=== PATIENT | female | born 1980 | race African-American/Black ===

== ENCOUNTER 2016-10-22 12:54 | Emergency (ER) | payer OTHER ==
[2016-10-22 13:12] VITALS: BP 132/81
[2016-10-22] MEDS ORDERED: Al Hydrox/Mg Hydrox/Simet LIQ* 30 ML UDC PO ONE (13:39)
[2016-10-22] MEDS ORDERED: Lidocaine 2% VISCOUS* 15 ML UDC PO ONE (13:39)
--- NOTE | 2016-10-22 14:16 | UC ---
Sherri Moura Thomas, scribed for Marilu Navarrete MD on 10/22/16 at 1324 . Cardiac HPI - HPI Summary HPI Summary: The pt is a 36 y/o F accompanied by and son and presenting to [facility] c/o intermittent CP characterized as burning for the past week. Pt states burning feeling in back of throat and upper neck. Previously, when she was she had heartburn, but her current pain is similar in chararacter but is worse than previous episode. When she had heartburn in the past, Tums alleviated her pain. Pt has not taken any Tums of Maalox, but has taken Pepto Bismol to no relief of pain. When she stands up from bending over, she gets a wave of pain and a taste in my mouth. + belching. Eating does not seem to change the pain level. Pt additionally c/o recent increase in belching, chills (separate from her pain), and tingling in her R arm. Pt denies SOB, diarrhea, bloody stools, and black tarry stools. She did not eat breakfast today second to mild nausea. The burning often wakes her up at night. Pt reports 2 previous stress tests performed previously, most recently in Feb, which were ok. Her PCP is Dr. Whiteside and her next scheduled appointment is next month. She is also prescribed a PRN inhaler. Patients medication reviewed this visit. . PMHx: DM (borderline), asthma, GERD. PSHx: tubal ligation. SHx: no smoking, no drinking, no illicit drugs. FHx: DM, HTN. S - History of Current Complaint Chief Complaint: UCChestPain Stated Complaint: HEART BURN CHEST PAIN Time Seen by Provider: 10/22/16 13:12 Hx Obtained From: Patient, Family/Director Of Technology - , son prseent Hx Last Menstrual Period: 10/20/16 Onset/Duration: Lasting Weeks - 1 week, Still Present Initial Severity: Mild Current Severity: None Chest Pain Location: Upper Sternal Character: Burning Aggravating: Position - when standing up from bending over, she gets a wave of pain Alleviating: Rest Associated Signs & Symptoms: Positive: Chest Pain, Tingling - to R arm. Negative: SOB, Nausea/Vomiting Related History: Similar Episode/Dx as - heartburn when she was - Allergy/Home Medications Allergies/Adverse Reactions: Allergies Allergy/AdvReac Type Severity Reaction Status Date / Time No Known Allergies Allergy Verified 10/22/16 13:12 PMH/Surg Hx/FS Hx/Imm Hx Previously Healthy: No Endocrine History: Diabetes - "borderline" Respiratory History: Asthma GI/ History: Gastroesophageal Reflux - when she was - Surgical History Surgical History: Yes Surgery Procedure, Year, and Place: TUBAL LIGATION, BB IN RT INDEX FINGER REMOVED A TEENAGER - Family History Known Family History: Positive: Hypertension, Diabetes Family History: Asthma - Social History Occupation: Unemployed - stay at home mom Lives: With Family Alcohol Use: None Substance Use Type: None Smoking Status (MU): Never Smoked Tobacco Review of Systems Constitutional: Chills - separate from chest pains Skin: Negative Eyes: Negative ENT: Negative Respiratory: Negative Cardiovascular: Chest Pain - began 1 week ago, aggravated by positional change, burning, belching Gastrointestinal: Other - POS: recent increase in belching; NEG: diarrhea, bloody stools, black tarry stools Genitourinary: Negative Motor: Negative Neurovascular: Negative Musculoskeletal: Negative Neurological: Negative Psychological: Negative All Other Systems Reviewed And Are Negative: Yes Physical Exam Triage Information Reviewed: Yes Appearance: Well-Appearing, No Pain Distress, Well-Nourished Vital Signs: Initial Vital Signs Temp 98.4 F 10/22/16 13:01 Pulse 65 10/22/16 13:01 Resp 16 10/22/16 13:01 BP 132/81 10/22/16 13:01 Pulse Ox 99 10/22/16 13:01 Vital Signs Reviewed: Yes Eye Exam: Normal Eyes: Positive: Conjunctiva Clear ENT Exam: Normal ENT: Positive: Normal ENT inspection, Hearing grossly normal, Pharynx normal Dental Exam: Normal Neck exam: Normal Neck: Positive: Supple, Nontender, No Lymphadenopathy Respiratory Exam: Normal Respiratory: Positive: Chest non-tender, Lungs clear, Normal breath sounds, No respiratory distress, No accessory muscle use Cardiovascular Exam: Normal Cardiovascular: Positive: RRR, No Murmur, Pulses Normal, Other: - not reproducible Abdominal Exam: Normal Abdomen Description: Positive: Nontender, No Organomegaly, Soft Bowel Sounds: Positive: Present Musculoskeletal Exam: Normal Neurological Exam: Normal Psychological Exam: Normal Skin Exam: Normal Diagnostics - EKG Cardiac Rate: NL - Sinus at 61 BPM. No STEMI. Inverted T-wave in III, unchanged from 12/31/16. Re-Evaluation - Re-Evaluation First Eval Re-Evaluation Time: 14:13 Change: Improved - Pt completely pain free folling GI cocktail eating a bagel Will d/c with Rx pepcid pcp f.u pt comfortable and in agreement with plan - Assessment/Plan Course Of Treatment: The pt is a 36 y/o F presenting to [facility] c/o intermittent CP characterized as burning for the past week. The pain is exacerbated by positional change. Pt additionally c/o recent increase in belching, chills ( separate from her pain), and tingling in her R arm. Pt has had neg stress test in 02/2016. She has a Hx of GERD. Will check EKG. GI cocktail. educated pt regarding GERD, food triggors, positional triggors. EKG reveals sinus at 61 BPM , no STEMI, inverted T-wave in III, unchanged from 03/22/16. - Clinical Impression Provider Diagnoses: GERD Discharge - Discharge Plan Condition: Stable Disposition: HOME Prescriptions: Famotidine TAB* [Pepcid 20 MG TAB*] 20 mg PO DAILY #30 tab Patient Education Materials: Gastroesophageal Reflux Disease (ED) Referrals: Fern Whiteside MD [Primary Care Provider] - Additional Instructions: - Stay well hydrated. Drink plenty of non-alcoholic, non-caffinated beverages - Avoid carbonated beverages, acidic food, tomato based food, fried foods - Eat small, frequent meals - Okay to take Tums or Maalox as needed for burning - Take pepcid - acid reducing medication as prescribed - Do not lay down for at least 1 hour after eating. Use 2-3 pillows - Call your doctor to schedule a follow-up appointment. Call your doctor, call 911 or go to the emergency department with any questions or concerns - increased pain, shortness of breath, lightheadedness, or any other questions or concerns The documentation as recorded by the Sherri duran Thomas accurately reflects the service I personally performed and the decisions made by , Marilu Navarrete MD.
== END 2016-10-22 14:20 | disposition home or self-care (01) ==
LOC: UCEAST 12:54
DX: K21.9 Gastro-esophageal reflux disease without esophagitis (principal); J45.909 Unspecified asthma, uncomplicated
CPT/HCPCS: 93005; 99212; A9270-GY; G0463

== ENCOUNTER 2017-05-05 18:38 | Emergency (ER) | payer OTHER ==
[2017-05-05 19:36] VITALS: BP 118/75
--- NOTE | 2017-05-05 20:39 | UC ---
FLU HPI - HPI Summary HPI Summary: Pt presents with fever, fatigue, and body aches for the last 2 days. Son was recently diagnosed with the flu. Pt has been taking tylenol for her symptoms. Denies cough, SOB, chest pain, abdominal pain, n/v/d/c. - History of Current Complaint Chief Complaint: UCRespiratory Stated Complaint: BODYACHES,FEVER Time Seen by Provider: 05/05/17 20:39 Hx Obtained From: Patient Hx Last Menstrual Period: 1 WEEK AGO Onset/Duration: Gradual Onset Severity Currently: Severe Severity Initially: Severe Pain Intensity: 9 Pain Scale Used: 0-10 Numeric - Allergy/Home Medications Allergies/Adverse Reactions: Allergies Allergy/AdvReac Type Severity Reaction Status Date / Time CATS Allergy Severe SNEEZING, Uncoded 05/05/17 19:36 CONGESTION DUST MITES Allergy Severe SNEEZING, Uncoded 05/05/17 19:36 CONGESTION Home Medications: Home Medications Acetaminophen [Mapap] 1,500 mg PO PRN 05/05/17 [History] Pheniramine/P-Eph/Acetaminophn [Theraflu Flu & Sore Throa] 1 ilya PO PRN [History] PMH/Surg Hx/FS Hx/Imm Hx Previously Healthy: Yes - Surgical History Surgical History: Yes Surgery Procedure, Year, and Place: TUBAL LIGATION, BB IN RT INDEX FINGER REMOVED A TEENAGER - Family History Known Family History: Positive: Hypertension, Diabetes Family History: Asthma - Social History Occupation: Employed Full-time Lives: With Family Alcohol Use: None Substance Use Type: None Smoking Status (MU): Never Smoked Tobacco Review of Systems Constitutional: Fever, Fatigue, Other - Body aches Skin: Negative Eyes: Negative ENT: Negative Respiratory: Negative Cardiovascular: Negative Gastrointestinal: Negative Musculoskeletal: Negative Neurological: Negative Psychological: Negative All Other Systems Reviewed And Are Negative: Yes Physical Exam Triage Information Reviewed: Yes Appearance: No Pain Distress, Well-Nourished, Ill-Appearing Vital Signs: Initial Vital Signs Temp 99.9 F 05/05/17 19:32 Pulse 85 05/05/17 19:32 Resp 20 05/05/17 19:32 BP 118/75 05/05/17 19:32 Pulse Ox 100 05/05/17 19:32 Vital Signs Reviewed: Yes Eyes: Positive: Conjunctiva Clear. Negative: Conjunctiva Inflamed, Discharge ENT: Positive: Hearing grossly normal, Pharynx normal, TMs normal, Uvula midline. Negative: Pharyngeal erythema, Nasal congestion, Nasal drainage, TM bulging, TM dull, TM red, Tonsillar swelling, Tonsillar exudate, Hoarse voice, Sinus tenderness Neck: Positive: Supple, Nontender, Other: - Anterior lymphadenopathy Respiratory: Positive: Lungs clear, Normal breath sounds, No respiratory distress, No accessory muscle use Cardiovascular: Positive: RRR, No Murmur, Pulses Normal Neurological: Positive: Alert Psychological: Positive: Age Appropriate Behavior Skin: Negative: rashes Flu Course/Dx - Course Course Of Treatment: Suspect influenza given her sick contacts and current presentation. Tamiflu - Differential Dx/Diagnosis Provider Diagnoses: Influenza Discharge - Discharge Plan Condition: Stable Disposition: HOME Prescriptions: Oseltamivir CAP* [Tamiflu CAP*] 75 mg PO BID #10 cap Patient Education Materials: Influenza (DC) Referrals: Fern Whiteside MD [Primary Care Provider] - Additional Instructions: If you develop a fever, shortness of breath, chest pain, new or worsening symptoms - please call your PCP or go to the ED.
== END 2017-05-05 20:45 | disposition home or self-care (01) ==
LOC: UCEAST 18:38
DX: J11.1 Influenza due to unidentified influenza virus with other respiratory manifestations (principal); Z20.828 Contact with and (suspected) exposure to other viral communicable diseases
CPT/HCPCS: 99212; G0463

== ENCOUNTER 2017-10-04 07:36 | Emergency (ER) | payer OTHER ==
[2017-10-04 07:47] VITALS: BP 148/94
--- NOTE | 2017-10-04 07:54 | UC ---
Dental HPI - HPI Summary HPI Summary: Pt is a 37 y/o F who presents to [facility] c/o dental pain. Pt reports that she had a plate put in place by a dentist to prevent shifting. After that she had difficulty talking and eating, though it could not be fixed. She saw another dentist and they removed it and cannot put in a new one, due to insurance coverage, per pt. Describes that she has been experiencing pain for the past 3- 4 months, gradually worsening. Pain is diffusely throughout the mouth stating, "my whole mouth hurts" with radiation to the bilateral eyes and ears and was at its worst last night. On triage, ranks pain 10/10 and has been taking Ibuprofen and Tylenol. Last saw a dentist 2 weeks ago where she was told she doesn't have any infection and has an appointment with a dentist on Thursday (5 days from today ). - History of Current Complaint Chief Complaint: UCDentalProblem Stated Complaint: DENTAL Time Seen by Provider: 10/04/17 07:48 Hx Obtained From: Patient Hx Last Menstrual Period: 3 wks ago Onset/Duration: Gradual Onset, Still Present Severity: Severe Pain Intensity: 10 Pain Scale Used: 0-10 Numeric Aggravating Factor(s): Nothing Alleviating Factor(s): Nothing - Allergies/Home Medications Allergies/Adverse Reactions: Allergies Allergy/AdvReac Type Severity Reaction Status Date / Time CATS Allergy Severe SNEEZING, Uncoded 10/04/17 07:47 CONGESTION DUST MITES Allergy Severe SNEEZING, Uncoded 10/04/17 07:47 CONGESTION PMH/Surg Hx/FS Hx/Imm Hx Endocrine History: Diabetes - Borderline Respiratory History: Asthma - Surgical History Surgical History: Yes Surgery Procedure, Year, and Place: TUBAL LIGATION, BB IN RT INDEX FINGER REMOVED A TEENAGER - Family History Known Family History: Positive: Hypertension, Diabetes Family History: Asthma - Social History Alcohol Use: None Substance Use Type: None Smoking Status (MU): Never Smoked Tobacco Review of Systems Constitutional: Negative Skin: Negative Eyes: Negative ENT: Dental Pain Respiratory: Negative Cardiovascular: Negative Gastrointestinal: Negative Genitourinary: Negative Motor: Negative Neurovascular: Negative Musculoskeletal: Negative Neurological: Negative Psychological: Negative All Other Systems Reviewed And Are Negative: Yes Physical Exam - Summary Physical Exam Summary: General: well-appearing Skin: warm, color reflects adequate perfusion, dry Head: normal Eyes: EOMI, [place] ENT: teeth are tender to percussion both upper and lower, upper is worse than lower and there are some dental caries Neck: supple, nontender Respiratory: CTA, breath sounds present Cardiovascular: RRR Abdomen: soft, nontender Bowel: present Musculoskeletal: normal, strength/ROM intact Neurological: sensory/motor intact, A&O x3 Psychological: affect/mood appropriate Triage Information Reviewed: Yes Vital Signs: Initial Vital Signs Temp 98.9 F 10/04/17 07:43 Pulse 66 10/04/17 07:43 Resp 18 10/04/17 07:43 BP 148/94 10/04/17 07:43 Pulse Ox 99 10/04/17 07:43 Vital Signs Reviewed: Yes Dental Complaint Course/Dx - Course Course Of Treatment: Medications reviewed. Allergies noted. BP noted and advised to follow up with PCP. F/U DENTIST; RECHECK SOONER IF NEEDED. - Differential Dx/Diagnosis Provider Diagnoses: DENTAL PAIN Discharge - Sign-Out/Discharge Documenting (check all that apply): Patient Departure - Discharge - Discharge Plan Condition: Stable Disposition: HOME Prescriptions: Amoxicillin PO (*) [Amoxicillin 875 MG (*)] 875 mg PO BID #20 tab HYDROcodone/ACETAMIN 5-325 MG* [[place] 5-325 TAB*] 1 tab PO Q4H PRN #30 tab MDD 6 PRN Reason: Pain Ibuprofen TAB* [Motrin TAB* 800 MG] 800 mg PO TID PRN #30 tab PRN Reason: Pain Patient Education Materials: Toothache (ED) Referrals: Fern Whiteside MD [Primary Care Provider] - Additional Instructions: FOLLOW UP WITH YOUR DENTIST. GET RECHECKED FOR ANY WORSENING OF YOUR CONDITION OR QUESTIONS OR CONCERNS. - Billing Disposition and Condition Condition: STABLE Disposition: Home
[2017-10-04] MEDS ORDERED: HYDROcodone/ACETAMIN 5-325 MG* 1 TAB PO ONE (07:58)
== END 2017-10-04 08:10 | disposition home or self-care (01) ==
LOC: UCEAST 07:36
DX: K08.89 Other specified disorders of teeth and supporting structures (principal)
CPT/HCPCS: 99212; G0463

== ENCOUNTER 2017-12-21 11:17 | Emergency (ER) | payer OTHER ==
[2017-12-21 11:51] VITALS: BP 155/99
--- NOTE | 2017-12-21 13:48 | RAD ---
HISTORY: cough x 3 months, fever COMPARISONS: June 29, 2015 VIEWS: 4: Frontal dual-energy and lateral views of the chest. FINDINGS: CARDIOMEDIASTINAL SILHOUETTE: The cardiomediastinal silhouette is normal. IMELDA: The imelda are normal. PLEURA: The costophrenic angles are sharp. No pleural abnormalities are noted. LUNG PARENCHYMA: The lungs are clear. ABDOMEN: The upper abdomen is clear. There is no subphrenic gas. BONES AND SOFT TISSUES: No bone or soft tissue abnormalities are noted. OTHER: None. IMPRESSION: NO ACTIVE CARDIOPULMONARY DISEASE.
--- NOTE | 2017-12-22 08:05 | ED ---
Progress - Progress Note Progress Note: CXR NAD 12/22/17, NO CHANGE IN CARE Discharge - Sign-Out/Discharge Documenting (check all that apply): Patient Departure All imaging exams completed and their final reports reviewed: Yes - Discharge Plan Condition: Good Disposition: HOME Referrals: Fern Whiteside MD [Primary Care Provider] - Additional Instructions: - Due to shortness of breath, lightheadedness, dizziness patient is sent to ER for evaluation - Billing Disposition and Condition Condition: GOOD Disposition: Home
--- NOTE | 2017-12-24 21:31 | UC ---
Shortness of Breath HPI - HPI Summary HPI Summary: 37 y/o female with c/o shortness of breath x several months, worse over past few weeks with associaetd lightheadedness, dizziness, substernal chest pain. h /o asthma. nebulizers do not help with breathing, taking albuterol inhaler without benefit. - History of Current Complaint Chief Complaint: UCRespiratory Stated Complaint: COUGH Time Seen by Provider: 12/21/17 13:06 Hx Obtained From: Patient Hx Last Menstrual Period: 12/11/17 ?: No Onset/Duration: Gradual Onset, Lasting Weeks, Worse Since - x 1 week Current Severity: Moderate Dyspnea At: Exertion Aggrevating Factors: Movement, Deep Breaths Associated Signs & Symptoms: Positive: Cough (Nonproductive) - Allergy/Home Medications Allergies/Adverse Reactions: Allergies Allergy/AdvReac Type Severity Reaction Status Date / Time CATS Allergy Severe SNEEZING, Uncoded 12/21/17 14:32 CONGESTION DUST MITES Allergy Severe SNEEZING, Uncoded 12/21/17 14:32 CONGESTION Home Medications: Home Medications Ibuprofen TAB* [Motrin TAB* 800 MG] 400 mg PO TID PRN 12/21/17 [History] PMH/Surg Hx/FS Hx/Imm Hx Previously Healthy: No - asthma - Surgical History Surgical History: Yes Surgery Procedure, Year, and Place: TUBAL LIGATION, BB IN RT INDEX FINGER REMOVED A TEENAGER - Family History Known Family History: Positive: Hypertension, Diabetes Family History: Asthma - Social History Alcohol Use: None Substance Use Type: None Smoking Status (MU): Never Smoked Tobacco Review of Systems Respiratory: Shortness Of Breath, Cough Cardiovascular: Chest Pain Is Patient Immunocompromised?: No All Other Systems Reviewed And Are Negative: Yes Physical Exam Triage Information Reviewed: Yes Appearance: Well-Appearing, No Pain Distress, Well-Nourished Vital Signs: Initial Vital Signs Temp 98.1 F 12/21/17 11:46 Pulse 79 12/21/17 11:46 Resp 18 12/21/17 11:46 BP 155/99 12/21/17 11:46 Pulse Ox 97 12/21/17 11:46 Vital Signs Reviewed: Yes ENT: Positive: Pharynx normal, TMs normal, Uvula midline. Negative: Dental tenderness, Sinus tenderness Neck: Positive: Supple, Nontender, No Lymphadenopathy Respiratory: Positive: Chest non-tender, Lungs clear, Normal breath sounds, No respiratory distress, No accessory muscle use, Wheezing - minimal at lower lobes b/l, difficult to hear due to body habitus. Negative: Respiratory distress, Crackles, Rhonchi, Stridor Cardiovascular: Positive: RRR, No Murmur, Pulses Normal Abdomen Description: Negative: CVA Tenderness (R), CVA Tenderness (L) Psychological Exam: Normal Skin Exam: Normal Shortness of Breath Dx - Course Course Of Treatment: EKg- abnormal T waves, non-specific. Due to aptient symptoms, sent to ER for further evaluation - Differential Dx/Diagnosis Differential Diagnosis/HQI/PQRI: CHF, AR, Pulmonary Embolism Provider Diagnoses: Patient sent to ED due to hypertension, chest pain Discharge - Sign-Out/Discharge Documenting (check all that apply): Patient Departure All imaging exams completed and their final reports reviewed: Yes - Discharge Plan Condition: Good Disposition: HOME Referrals: Fern Whiteside MD [Primary Care Provider] - Additional Instructions: - Due to shortness of breath, lightheadedness, dizziness patient is sent to ER for evaluation - Billing Disposition and Condition Condition: GOOD Disposition: Home
== END 2017-12-21 13:55 | disposition home or self-care (01) ==
LOC: UCEAST 11:17
DX: R07.89 Other chest pain (principal); I10 Essential (primary) hypertension; R05 Cough; R06.02 Shortness of breath
CPT/HCPCS: 71046; 93005; 99212; G0463

== ENCOUNTER 2017-12-21 14:26 | Emergency (ER) | payer OTHER ==
--- NOTE | 2017-12-21 17:43 | ED ---
HPI Chest Pain - HPI Summary HPI Summary: A 37 y/o F presents to ED with c/o a productive cough with green phlegm for 3 months, which she thought was her asthma, but her nebulizer provides no relief. Associated sx: Dizziness, CP secondary to cough, fever 101 F yesterday which has resolved. Pt has not taken any OTC cough medicine. She had similar sx three years ago which was when she was diagnosed with asthma. Pt was seen at [facility] this afternoon and they referred her to ED. - History of Current Complaint Chief Complaint: EDChestPainROMI Time Seen by Provider: 12/21/17 17:42 Hx Obtained From: Patient Hx Last Menstrual Period: 12/11/17 Onset/Duration: Started Weeks Ago, Still Present Timing: Intermittent Initial Severity: Moderate Current Severity: Severe Pain Intensity: 8 Pain Scale Used: 0-10 Numeric Associated Signs and Symptoms: Positive: Chest Pain - due to cough, Dizziness, Fever, Productive Cough - Allergy/Home Medications Allergies/Adverse Reactions: Allergies Allergy/AdvReac Type Severity Reaction Status Date / Time CATS Allergy Severe SNEEZING, Uncoded 12/21/17 14:32 CONGESTION DUST MITES Allergy Severe SNEEZING, Uncoded 12/21/17 14:32 CONGESTION PMH/Surg Hx/FS Hx/Imm Hx Previously Healthy: No Endocrine/Hematology History: Reports: Hx Diabetes - states "borderline" Denies: Hx Thyroid Disease Cardiovascular History: Reports: Other Cardiovascular Problems/Disorders - bradycardia postpardem Denies: Hx Hypertension, Hx Pacemaker/ICD Respiratory History: Reports: Hx Asthma Denies: Hx Chronic Obstructive Pulmonary Disease (COPD) GI History: Denies: Hx Ulcer Sensory History: Denies: Hx Hearing Aid Psychiatric History: Denies: Hx Panic Disorder - Surgical History Surgery Procedure, Year, and Place: TUBAL LIGATION, BB IN RT INDEX FINGER REMOVED A TEENAGER Infectious Disease History: No Infectious Disease History: Denies: Hx Hepatitis, Hx Human Immunodeficiency Virus (HIV), History Other Infectious Disease, Traveled Outside the [place] in Last 30 Days - Family History Known Family History: Positive: Hypertension, Diabetes Family History: Asthma - Social History Occupation: Employed Full-time - HOMEMAKER Lives: With Family Alcohol Use: None Hx Substance Use: No Substance Use Type: Reports: None Hx Tobacco Use: No Smoking Status (MU): Never Smoked Tobacco Review of Systems Positive: Fever Positive: Chest Pain - secondary to cough Positive: Cough Neurological: Other - pos: dizziness All Other Systems Reviewed And Are Negative: Yes Physical Exam - Summary Physical Exam Summary: VITAL SIGNS: Reviewed. GENERAL: Patient is a well-developed and nourished FEMALE who is lying comfortable in the stretcher. Patient is not in any acute respiratory distress. HEAD AND FACE: No signs of trauma. No ecchymosis, hematomas or skull depressions. No sinus tenderness. EYES: PERRLA, EOMI x 2, No injected conjunctiva, no nystagmus. EARS: Hearing grossly intact. Ear canals and tympanic membranes are within normal limits. MOUTH: Oropharynx within normal limits. NECK: Supple, trachea is midline, no adenopathy, no JVD, no carotid bruit, no c- spine tenderness, neck with full ROM. CHEST: Symmetric, no tenderness at palpation LUNGS: Clear to auscultation bilaterally. No wheezing or crackles. CVS: Regular rate and rhythm, S1 and S2 present, no murmurs or gallops appreciated. ABDOMEN: Soft, non-tender. No signs of distention. No rebound, no guarding, and no masses palpated. Bowel sounds are normal. EXTREMITIES: FROM in all major joints, no edema, no cyanosis or clubbing. NEURO: Alert and oriented x 3. No acute neurological deficits. Speech is normal and follows commands. SKIN: Dry and warm Triage Information Reviewed: Yes Vital Signs On Initial Exam: Initial Vitals Temp Pulse Resp BP Pulse Ox 97.2 F 86 20 147/91 95 12/21/17 14:29 12/21/17 14:29 12/21/17 14:29 12/21/17 14:29 12/21/17 14:29 Vital Signs Reviewed: Yes Diagnostics - Vital Signs Vital Signs Temp Pulse Resp BP Pulse Ox 12/21/17 17:39 98.7 F 97 18 149/88 99 12/21/17 16:18 98.0 F 80 16 144/88 99 12/21/17 14:29 97.2 F 86 20 147/91 95 - Laboratory Result Diagrams: 12/21/17 18:14 12/21/17 18:14 Lab Statement: Any lab studies that have been ordered have been reviewed, and results considered in the medical decision making process. - EKG 1436 Cardiac Rate: NL - 76bpm EKG Rhythm: Sinus Rhythm ST Segment: Normal - no ST elevation EKG Interpretation: inverted T-waves in III EKG Comparison: No Significant Change - from 10/22/16. Chest Pain Course/Dx - Course Assessment/Plan: A 37 y/o F presents to ED with c/o a productive cough with green phlegm for 3 months, which she thought was her asthma, but her nebulizer provides no relief. Associated sx: Dizziness, CP secondary to cough, fever 101 F yesterday which has resolved. Pt has not taken any OTC cough medicine. She had similar sx three years ago which was when she was diagnosed with asthma. Pt was seen at [facility] this afternoon and they referred her to ED. Blood test results without any significant abnormality except for seasonal 10.9, and d-dimer is 461. Therefore this point I decided to put in a CTA of the chest to rule out PE. The patient will be signed out to Dr. Amor to follow-up the CT results and further assessment and disposition. - Chest Pain Differential Diagnosis/HQI/PQRI: Acute MT, ACS, Angina, CHF, Chest Wall, GI Disease, Lower Respiratory Infection, Pulmonary Edema - Diagnoses Provider Diagnoses: Dyspnea Discharge - Sign-Out/Discharge Documenting (check all that apply): Sign-Out Patient Signing out patient TO: Adithya Amor - pending work-up, dispo - Discharge Plan Condition: Stable Disposition: HOME Patient Education Materials: Dyspnea (ED) Referrals: Fern Whiteside MD [Primary Care Provider] - 2 Days Additional Instructions: RETURN TO THE EMERGENCY DEPARTMENT FOR CHANGING OR WORSENING SYMPTOMS. FOLLOW UP WITH PRIMARY CARE PHYSICIAN IN 1-2 DAYS. - Attestation Statements Document Initiated by Julioibe: Yes Documenting Scribe: Janki Mccray Provider For Whom Crissy is Documenting (Include Credential): Dr. Dominick Healy MD Scribe Attestation: Janki Moura scribed for Dr. Dominick Healy MD on 12/22/17 at 1826. Scribe Documentation Reviewed: Yes Provider Attestation: The documentation as recorded by the Janki duran accurately reflects the service I personally performed and the decisions made by me, Dr. Dominick Healy MD
[2017-12-21] MEDS ORDERED: NS 0.9% 1000 ML* 1,000 ML IV ONE (18:05)
[2017-12-21] MEDS ORDERED: guaiFENesin/CODIEN 100MG-10MG* 5 ML UDC PO ONE (18:07)
[2017-12-21 18:24] LABS: ABS Basophils 0.1 10^3/ul (0-0.2); ABS Eosinophils 0.2 10^3/ul (0-0.6); ABS Lymphocytes 3.4 10^3/ul (1.0-4.8); ABS Monocytes 0.5 10^3/ul (0-0.8); ABS Neutrophils 6.7 10^3/ul (1.5-7.7); ABS Nucleated RBC 0 10^3/ul; Eosinophil % 1.6 % (0-6); Hematocrit 41 % (35-47); Hemoglobin 13.3 g/dl (12.0-16.0); Mean Corpuscular HGB Conc 33 g/dl (31-36); Mean Corpuscular Hemoglobin 29 pg (27-31); Mean Corpuscular Volume 88 fL (80-97); Mean Platelet Volume 7.2 um3 (7.4-10.4); Nucleated Red Blood Cells % 0.1; Platelet Count 376 10^3/ul (150-450); Red Blood Count 4.58 10^6/ul (4.00-5.40); Red Cell Distribution Width 13 % (10.5-15); White Blood Count 10.9 10^3/ul (3.5-10.8)
[2017-12-21 19:03] LABS: EGFR Non-African American 59.3 (>60)
[2017-12-21] MEDS ORDERED: Iohexol 350* (CONTRAST) 500 ML MDV IV ONE (19:20)
--- NOTE | 2017-12-21 19:30 | ED ---
Progress - Progress Note Progress Note: Patient was received as a sign out from Dr. Healy to Dr. Amor at 1900 for shift change pending CTA chest results. CTA Chest/Thorax: no pulmonary emboli. No additional findings to correlate with patient's symptomatology. Course/Dx - Course Course Of Treatment: Patient was received as a sign out from Dr. Healy to Dr. Amor at 1900 for shift change pending CTA chest results. CTA Chest/Thorax: no pulmonary emboli. No additional findings to correlate with patient's symptomatology. Patient was discharged to home and instructed to follow up with PCP in 1-2 days. Dx of dyspnea. - Diagnoses Provider Diagnoses: Dyspnea Discharge - Sign-Out/Discharge Documenting (check all that apply): Patient Departure - discharge - Discharge Plan Condition: Stable Disposition: HOME Patient Education Materials: Dyspnea (ED) Referrals: Fern Whiteside MD [Primary Care Provider] - 2 Days Additional Instructions: RETURN TO THE EMERGENCY DEPARTMENT FOR CHANGING OR WORSENING SYMPTOMS. FOLLOW UP WITH PRIMARY CARE PHYSICIAN IN 1-2 DAYS. - Attestation Statements Document Initiated by Scribe: Yes Documenting Scribe: Sixto Weston Provider For Whom Crissy is Documenting (Include Credential): Adithya Amro MD Scribe Attestation: Sixto Moura , scribed for Adithya Amor MD on 12/21/17 at 2053.
--- NOTE | 2017-12-21 20:43 | RAD ---
EXAM: CT Angiography Chest With Intravenous Contrast CLINICAL HISTORY: 37 years old, female; Signs and symptoms; Shortness of breath and other: Chest pain; Additional info: SOB and chest pain TECHNIQUE: Axial computed tomographic angiography images of the chest with intravenous contrast using pulmonary embolism protocol. All CT scans at this facility use at least one of these dose optimization techniques: automated exposure control; mA and/or kV adjustment per patient size (includes targeted exams where dose is matched to clinical indication); or iterative reconstruction. MIP reconstructed images were created and reviewed. Coronal and sagittal reformatted images were created and reviewed. CONTRAST: 86 mL of Omnipaque administered intravenously. COMPARISON: DX CXR CHEST PA LAT 2 VWS 12/21/2017 1:25 PM FINDINGS: Pulmonary arteries: Pulmonary arteries are well opacified to the subsegmental branches. Normal caliber main pulmonary artery. No filling defects throughout the pulmonary artery tree. Aorta: Normal caliber aorta with no evidence of dissection or rupture. Lungs: No pulmonary nodules, masses, or consolidations. No bronchiectasis, peribronchial thickening, or luminal defects. Pleural space: Normal. No significant effusion. No pneumothorax. Heart: Normal. No cardiomegaly. No significant pericardial effusion. No evidence of RV dysfunction. Thyroid: No thyroid nodules. Bones/joints: No fractures. No suspicious bone lesions. No dislocation. Soft tissues: Normal. Lymph nodes: Normal. No enlarged lymph nodes. IMPRESSION: No pulmonary emboli. No additional findings to correlate with patient's symptomatology.
[2017-12-21 20:52] VITALS: BP 146/76
[2017-12-21 21:07] LABS: Urine Appearance Cloudy; Urine Blood Negative (Negative); Urine Color Yellow; Urine Ketones Negative (Negative); Urine Protein Negative (Negative); Urine Red Blood Cell 3+(>10/hpf) (Absent); Urine Urobilinogen Negative (Negative); Urine White Blood Cell Trace(0-5/hpf) (Absent)
== END 2017-12-21 21:13 | disposition home or self-care (01) ==
LOC: ED 14:26
DX: R06.00 Dyspnea, unspecified (principal)
CPT/HCPCS: 36415; 71275; 80053; 81003; 81015; 82550; 82553; 83605; 83735; 83880; 84443; 84484; 85025; 85379; 85730; 87086; 93005; 99283; A9270-GY; Q9967

== ENCOUNTER 2018-06-05 14:34 | Emergency (ER) | payer OTHER ==
[2018-06-05 15:06] VITALS: BP 139/85
[2018-06-05 15:58] LABS: Influenza A Molecular NEGATIVE (Negative); Influenza B Molecular NEGATIVE (Negative)
--- NOTE | 2018-06-05 16:00 | UC ---
FLU HPI - HPI Summary HPI Summary: fevers chills body aches sore throat nasal congestion and cough---no flu vaccine --no one else at home is ill - History of Current Complaint Chief Complaint: UCRespiratory Stated Complaint: FLU LIKE-SYM Time Seen by Provider: 06/05/18 15:53 Hx Obtained From: Patient Hx Last Menstrual Period: 3 wks ago ?: No Onset/Duration: Sudden Onset, Lasting Days - 1, Still Present Pain Intensity: 10 Pain Scale Used: 0-10 Numeric Associated Signs & Symptoms: Positive: Fever, Myalgia, Cough, Sore Throat, Nasal Congestion, Headache - Allergy/Home Medications Allergies/Adverse Reactions: Allergies Allergy/AdvReac Type Severity Reaction Status Date / Time CATS Allergy Severe SNEEZING, Uncoded 06/05/18 15:07 CONGESTION DUST MITES Allergy Severe SNEEZING, Uncoded 06/05/18 15:07 CONGESTION PMH/Surg Hx/FS Hx/Imm Hx Previously Healthy: No Endocrine History: Diabetes - borderline Respiratory History: Asthma - Surgical History Surgical History: Yes Surgery Procedure, Year, and Place: TUBAL LIGATION, BB IN RT INDEX FINGER REMOVED A TEENAGER - Family History Known Family History: Positive: Hypertension, Diabetes Family History: Asthma - Social History Occupation: Works From/At Home Lives: With Family Alcohol Use: None Substance Use Type: None Smoking Status (MU): Never Smoked Tobacco Review of Systems All Other Systems Reviewed And Are Negative: Yes Constitutional: Positive: Fever, Chills, Fatigue Skin: Positive: Negative Eyes: Positive: Negative ENT: Positive: Sore Throat, Nasal Discharge Respiratory: Positive: Cough Cardiovascular: Positive: Negative Gastrointestinal: Positive: Negative Genitourinary: Positive: Negative Motor: Positive: Negative Neurovascular: Positive: Negative Musculoskeletal: Positive: Arthralgia, Myalgia Neurological: Positive: Headache Psychological: Positive: Negative Is Patient Immunocompromised?: Yes Physical Exam Triage Information Reviewed: Yes Appearance: Ill-Appearing, Pain Distress, Obese Vital Signs: Initial Vital Signs Temp 99.7 F 06/05/18 15:04 Pulse 92 06/05/18 15:04 Resp 18 06/05/18 15:04 BP 139/85 06/05/18 15:04 Pulse Ox 98 06/05/18 15:04 Vital Signs Reviewed: Yes Eye Exam: Normal Eyes: Positive: Conjunctiva Clear ENT Exam: Normal ENT: Positive: Normal ENT inspection, Hearing grossly normal, Pharynx normal, Uvula midline. Negative: Nasal congestion, TMs normal, Trismus, Muffled voice, Hoarse voice, Sinus tenderness Dental Exam: Normal Neck exam: Normal Neck: Positive: Supple, Nontender, No Lymphadenopathy Respiratory Exam: Normal Respiratory: Positive: Chest non-tender, Lungs clear, Normal breath sounds, No respiratory distress, No accessory muscle use Cardiovascular Exam: Normal Cardiovascular: Positive: RRR, No Murmur, Pulses Normal, Brisk Capillary Refill Musculoskeletal Exam: Normal Musculoskeletal: Positive: Strength Intact, ROM Intact, No Edema Neurological Exam: Normal Neurological: Positive: Alert, Muscle Tone Normal Psychological Exam: Normal Skin Exam: Normal Flu Course/Dx - Course Course Of Treatment: rapid strep and flu are negative---patient will rest increase fluids use otc medications for symptoms relief and follow with pcp or return as needed - Differential Dx/Diagnosis Provider Diagnosis: Viral infection Discharge - Sign-Out/Discharge Documenting (check all that apply): Patient Departure All imaging exams completed and their final reports reviewed: No Studies - Discharge Plan Condition: Stable Disposition: HOME Patient Education Materials: Upper Respiratory Infection (ED), Viral Syndrome ( ED) Referrals: Fern Whiteside MD [Primary Care Provider] - If Needed - Billing Disposition and Condition Condition: STABLE Disposition: Home
== END 2018-06-05 16:25 | disposition home or self-care (01) ==
LOC: UCEAST 14:34
DX: B34.9 Viral infection, unspecified (principal); M79.10 Myalgia, unspecified site; R05 Cough; J02.9 Acute pharyngitis, unspecified; R09.81 Nasal congestion; J45.909 Unspecified asthma, uncomplicated; Z91.09 Other allergy status, other than to drugs and biological substances
CPT/HCPCS: 87651; 99211; G0463